=== PATIENT | male | born 1935 | race Caucasian/White ===

== ENCOUNTER 2021-02-20 15:53 | Emergency (ER) | payer MEDICARE, SELFPAY ==
[~2021-02-20] VITALS: Ht 175.3 cm; Wt 81.6 kg
[2021-02-20 16:04] VITALS: BP_SYST 122
--- NOTE | 2021-02-20 16:12 | NUR ---
Patient to ER bed 8 to gown for evaluation. Side rails up. Report given to Naveed REAL.
--- NOTE | 2021-02-20 16:20 | NUR ---
covid swab performed at bedside and sent to lab
--- NOTE | 2021-02-20 16:30 | NUR ---
RECEIVED AND IN ROOM 8, TUSHAR TO ASSUME CARE, CALM, ALERT, RESP UNLABORED, SKIN WARM AND DRY. HERE FOR C/O SOB AND RECENT DX OF BRONCHITIS
--- NOTE | 2021-02-20 16:35 | NUR ---
mrsa swab performed at bedside Addendum: 02/20/21 at 1706 by [email or web address] flu swab performed at bedside
--- NOTE | 2021-02-20 16:48 | NUR ---
DAUGHTER AT BEDSIDE. PT CALM, ALERT, NO DISTRESS, VSS
[2021-02-20 17:03] LABS: BASOPHILS % (AUTO) 0.2 % (0.0-2.0); HEMATOCRIT 36.4 % (36-54); HEMOGLOBIN 12.3 g/dL (14.0-18.0); LYMPHOCYTES # (AUTO) 0.6 K/uL (1.0-5.5); MEAN CORPUSCULAR HEMOGLOBIN 35 pg (27-31); MEAN CORPUSCULAR HGB CONC 34 % (32-36); MEAN CORPUSCULAR VOLUME 105 fL (79.0-98.0); MONOCYTES # (AUTO) 0.4 K/uL (0.0-1.0); MONOCYTES % (AUTO) 5.7 % (1.7-9.3); NEUTROPHILS # (AUTO) 6.8 K/uL (1.8-7.7); NEUTROPHILS % (AUTO) 86.1 % (40.0-70.0); PLATELET COUNT (AUTO) 106 K/uL (130-430); RED BLOOD CELL COUNT(AUTO) 3.47 MIL/uL (4.2-6.2); RED CELL DISTRIBUTION WIDTH 13.4 % (9.0-15.0); WHITE BLOOD COUNT (AUTO) 7.9 K/uL (4.8-10.8)
--- NOTE | 2021-02-20 17:09 | NUR ---
ALERTED TO POSITIVE COVID-19 RESULTS.
[2021-02-20 17:20] LABS: INR 1.1 (0.80-1.20)
[2021-02-20 17:45] LABS: ACETONE, SERUM NEGATIVE (NEGATIVE)
--- NOTE | 2021-02-20 17:52 | NUR ---
Dr. Degroot, [facility] Doc, called back to speak to Dr. Issa regarding pt status.
--- NOTE | 2021-02-20 17:52 | NUR ---
Note joni in EDM - 02/20/21 at [address] Solis, [facility] Doc, called back to speak to Dr. Issa regarding pt status.
[2021-02-20 18:00] LABS: ANION GAP 8 (5-15); CALCIUM 7.8 mg/dL (8.4-11.0); CHLORIDE 101 mmol/L (98-107); GLUCOSE 89 mg/dL (70-99); SODIUM SERUM 136 mmol/L (136-145); UREA NITROGEN, BLOOD 32 mg/dL (8-21)
[2021-02-20 18:01] LABS: ALANINE AMINOTRANSFERASE 34 U/L (12-78); ALBUMIN 2.3 g/dL (3.4-4.8); ASPARTATE AMINOTRANSFERASE 67 U/L (10-37)
--- NOTE | 2021-02-20 19:14 | NUR ---
EASILY AROUSED, RESP UNLABORED, DENIES CP/SOB. [facility] TRANSFER PENDING
--- NOTE | 2021-02-20 19:54 | NUR ---
[facility] LARA ACCEPTED UNDER DR WESLEY
[2021-02-20] MEDS ORDERED: DEXAMETHASONE SOD PHOSPHATE 10 MG/ML VIAL IM ONE (20:00)
[2021-02-20 20:50] VITALS: BP_SYST 131
--- NOTE | 2021-02-20 20:50 | NUR ---
Patient to be transferred to [facility]. Is being transferred due to higher level of care. Receiving facility has accepting physician and available space. ER physician has signed transfer form. Patient or responsible constitution party has agreed to transfer and signed form. Patient belongings inventoried and will be sent with patient. Copy of nursing notes, lab reports, EKG, Physicians Orders and X-rays to be sent with patient. [place] [facility] [place] Receiving physician is KIN. [facility] ambulance service has been called for transfer. ETA is NOW
== END 2021-02-20 20:50 | disposition short-term general hospital (02) ==
LOC: SED 15:53
DX: U07.1 COVID-19 (principal); J80 Acute respiratory distress syndrome; I11.0 Hypertensive heart disease with heart failure; I50.9 Heart failure, unspecified
CPT/HCPCS: 36415; 71045; 80053; 82009; 83605; 83880; 84145; 84484; 85025; 85610; 85730; 86710; 87426; 93005; 96372; 99285; J1100